=== PATIENT | female | born 1950 | race African-American/Black ===

== ENCOUNTER → 2016-12-15 | Outpatient (CLI) | payer MEDICARE ==
[~2016-12-15] MED LIST: ACETAMINOPHEN PO; BACTROBAN 2% TOP; CLOBETASOL 0.0560 GM TOP; FLEXERIL10 MG PO; GLUCOPHAGE XR500 MG PO; GLUCOPHAGE500 MG PO; HYDROCHLOROTH12.5 MG PO; IRON PO; KCL PO; LISINOPRIL PO; LORTAB 10-5001 EACH PO; LORTAB 5/500 TA1 TA2 PO; LOVASTATIN20 MG PO; METFORMIN PO; MICRO-K PO; NABUMETONE PO; NORVASC PO; PEN-VEE K PO; PHENERGAN25 MG PO; PREDNISONE PO; PREMARIN VAGINAL; RALAFEN; VICODIN 5/500 T1 TAB PO; WALGREENS PHARMACY; ZESTRIL40 MG PO; [UNRECOGNIZED DRUG - REMARK]
--- NOTE | ~2016-12-15 | US5 ---
[facility] A Service of [facility] RADIOLOGY TEXT RESULTS PATIENT: DHARA MANN LOCATION: [facility] : 52 UNIT #: [id number] AGE: [address]: Radha Hernadez MD SEX: F ORDER DR: [id number] [place] [id number] O MR#: [id number] Acc #: [id number] NAME: DHARA MANN : 1950 SEX: F STUDY DATE/TIME: 12/15/2016 8:41 UNIT: SGUS ROOM: STUDY DESCRIPTION: US Abdominal Complete Attending Physician: Radha Hernadez M.D. Referring Physician: Radha Hernadez M.D. Ordering Physician: Radha Hernadez M.D. Primary Care Physician: Radha Hernadez M.D. MEDICAL IMAGING REPORT This report is preliminary unless electronic signature is present. EXAM Abdominal ultrasound INDICATIONS Elevated transaminase levels. TECHNIQUE Carpenter-scale and color Doppler imaging of the abdomen was performed. COMPARISON CT abdomen and pelvis 08/09/2011. FINDINGS Visualized portions of the pancreas are unremarkable. The liver has a coarsened echotexture. There is no biliary ductal dilatation or evidence of focal hepatic lesion. The common duct measures 3 mm. The proximal and mid abdominal aorta are within normal limits. The distal abdominal aorta is not visualized due to overlying bowel gas. The intrahepatic IVC is unremarkable. The right kidney measures 10.4 cm in length. There is no hydronephrosis. The left kidney measures 10.1 cm in length. No hydronephrosis. Spleen measures 8 cm in length, within normal limits. Previous cholecystectomy. IMPRESSION 1. Cholecystectomy. 2. Coarsened hepatic echotexture. 3. No evidence of biliary ductal dilatation. Dictated by... Franklin Juarez M.D. THIS IS AN ELECTRONICALLY VERIFIED REPORT [facility] A Service of [facility] RADIOLOGY TEXT RESULTS PATIENT: DHARA MANN LOCATION: [facility] : 52 UNIT #: [id number] AGE: [address]: Radha Hernadez MD SEX: F ORDER DR: Franklin Juarez M.D. at 12/15/2016 9:52 PM ANGEL/miladys TD: 12/15/2016 20:40 JOB #: [id number] MEDICAL IMAGING REPORT Page 1 of 1
== END | disposition home or self-care (01) ==
LOC: SGUS 08:29
DX: R74.0 Nonspecific elevation of levels of transaminase and lactic acid dehydrogenase [LDH] (principal); Z90.49 Acquired absence of other specified parts of digestive tract
CPT/HCPCS: 76700